=== PATIENT | female | born 1995 | race Two or more races ===

== ENCOUNTER → 2019-04-13 | Outpatient (CLI) | payer OTHER ==
[2018-12-12 15:06] VITALS: BP 102/60
[~2019-04-13] MED LIST: NAPR-514 PO
--- NOTE | 2019-04-13 16:45 | RAD ---
Study: OB > 14 WKS W/TV Clinical Indication: Anatomic evaluation. Estimated weight. Comparison: None Technique: Multiple grayscale images, color Doppler, and M-mode images of the uterus are obtained. Findings: There is a single intrauterine gestation in breech presentation. The placenta is posterior/fundal in location without evidence of placenta previa. The amount of amniotic fluid appears appropriate. Amniotic fluid index is 16.4 cm. Cervical length is 4.1 cm. Biometrical data: BPD = 4.79 cm for 20 weeks 3 days. HC = 18.18 cm for 20 weeks 4 days. AC = 16.42 cm for 21 weeks 3 days. FL = 3.12 cm for 19 weeks 5 days. CI ratio = 80.3. HC/AC ratio = 1.11. FL/HC ratio = 17.2. FL/AC ratio = 19.0. Overall, the estimated sonographic gestational age is 20 weeks 4 days.The estimated date of delivery provided by the last menstrual period is 20 weeks 1 day. Estimated weight is 368 g +/- 54 g A 4 chamber heart is identified with positive cardiac activity. The estimated heart rate is 145 beats per minute. The right and left ventricular outflow tracts were not able to be interrogated. Bilateral upper and lower extremities are identified. There is a three-vessel cord. stomach and urinary bladder are identified. Both kidneys are seen. The spine and brain are unremarkable. No gross anatomic abnormalities are identified. Impression: 1. Single live intrauterine gestation with estimated sonographic gestational age of 20 weeks 4 days. The estimated gestational age based on last menstrual period is 20 weeks 1 day. Estimated weight of 368 g +/- 54 g. 2. Posterior/fundal placenta without previa. Breech presentation at this time. Close cervix measuring 4.1 cm in length. 3. No gross anatomic abnormality is identified. Electronically signed by: FAM JAIME MD (04/13/2019 4:42 PM) [facility]
== END | disposition home or self-care (01) ==
LOC: US 15:25
PROVIDERS: ATTEND Obstetrics & Gynecology
DX: O32.1XX0 Maternal care for breech presentation, not applicable or unspecified (principal); O26.842 Uterine size-date discrepancy, second trimester; Z3A.20 20 weeks gestation of pregnancy
CPT/HCPCS: 76805; 76817